=== PATIENT | male | born 1985 | race Caucasian/White ===

== ENCOUNTER 2021-08-12 10:58 | Emergency (ER) | payer OTHER, SELFPAY ==
--- NOTE | 2021-08-12 11:28 | HMH.EDUTC ---
[facility] [place] Disposition Clinical Impression: Left ankle sprain Qualifiers: Encounter type: initial encounter Involved ligament of ankle: unspecified ligament Qualified Code(s): S93.402A - Sprain of unspecified ligament of left ankle, initial encounter Sprain of left foot Qualifiers: Encounter type: initial encounter Qualified Code(s): S93.602A - Unspecified sprain of left foot, initial encounter Disposition: Home, Self-Care Condition on Discharge: Good Instructions: How to Use Crutches, DI for Ankle Sprain, DI for Foot Sprain Additional Instructions: Rest the extremity, apply ice for 15 minutes as tolerated three or four times per day, Elevate the extremity as tolerated while you are resting. Take ibuprofen for pain. I sent in a prescription to your pharmacy. Follow up with Dr. Apple (podiatry). Sometimes there can be fractures that don't show up well on the first set of x-rays. So, you should follow up if you continue to have symptoms. I put in a referral but you need to call his office and schedule an appointment. Follow up with your regular doctor. GO TO THE ER FOR ANY WORSENING SYMPTOMS Prescriptions: Ibuprofen [Ibuprofen 800mg Tablet] 800 mg PO Q8HP PRN #30 tab PRN Reason: Moderate Pain Transmission Status: Received by [id number] Referrals: Provider,Referral, [Primary Care Provider] - Kristen Apple DPM [Staff Physician] - Forms: Work/School Release Time of Disposition: 12:37 Medical Decision Making - Medical Records Medical records reviewed: No: I reviewed the patient's medical records. - Brent Inquiry Pt receiving controlled substance: No Vital Signs: 08/12/21 11:34 08/12/21 13:06 Temperature 98.1 F 98.1 F Temperature Source Oral Pulse Rate 85 Pulse Rate [Left] 85 Respiratory Rate 20 20 Blood Pressure 138/89 Blood Pressure [Right Arm] 138/89 Blood Pressure Mean [Right Arm] 105 02 Sat by Pulse Oximetry 100 - Radiology Data #1 Image(s): Foot/Toes Image Reviewed: Yes I reviewed the patient's radiology image, Yes I have reviewed radiologist's interpretation Preliminary Findings: Normal/NAD, No Fracture Seen PROCEDURE: XR FOOT LT MIN 3V CLINICAL INDICATION: fall Injury with pain COMPARISON: No exams were available for comparison FINDINGS: No fracture or dislocation. No lytic or blastic change. There is normal mineralization. The joint spaces are well-preserved. No significant degenerative/arthritic changes. No erosive changes evident. Other findings:None. IMPRESSION: No acute findings. Dictated by: Dewey Veras MD 08/12/2021 12:24 Dewey Veras MD in [place] 08/12/2021 12:24 #2 Image(s): Ankle Image Reviewed: Yes I reviewed the patient's radiology image, Yes I have reviewed radiologist's interpretation Preliminary Findings: Abnormal, No Fracture Seen PROCEDURE: XR ANKLE LT MIN 3V CLINICAL INDICATION: fall Injury with pain COMPARISON: No exams were available for comparison FINDINGS: No fracture or dislocation. No lytic or blastic change. There is normal mineralization. The joint spaces are well-preserved. No significant degenerative/arthritic changes. No erosive changes evident. Other findings:Soft tissue swelling laterally. IMPRESSION: Soft tissue swelling otherwise negative Dictated by: Dewey Veras MD 08/12/2021 12:23 Dewey Veras MD in [place] 08/12/2021 12:23 #3 Image(s): Tib/Fib Image Reviewed: Yes I reviewed the patient's radiology image, Yes I have reviewed radiologist's interpretation Preliminary Findings: Normal/NAD, No Fracture Seen PROCEDURE: XR TIBIA FIBULA LT 2V CLINICAL INDICATION: fall COMPARISON: No exams were available for comparison FINDINGS: No fracture or dislocation. No lytic or blastic change. There is normal mineralization. The joint spaces are well-preserved. No significant degenerative/arthritic changes. No erosive changes evident. Other findings:None. I
--- NOTE | 2021-08-12 11:33 | XR_ITS ---
PROCEDURE: XR ANKLE LT MIN 3V CLINICAL INDICATION: fall Injury with pain COMPARISON: No exams were available for comparison FINDINGS: No fracture or dislocation. No lytic or blastic change. There is normal mineralization. The joint spaces are well-preserved. No significant degenerative/arthritic changes. No erosive changes evident. Other findings:Soft tissue swelling laterally. IMPRESSION: Soft tissue swelling otherwise negative Dictated by: Dewey Veras MD 08/12/2021 12:23 Dewey Veras MD in [place] 08/12/2021 12:23
--- NOTE | 2021-08-12 11:33 | XR_ITS ---
PROCEDURE: XR TIBIA FIBULA LT 2V CLINICAL INDICATION: fall COMPARISON: No exams were available for comparison FINDINGS: No fracture or dislocation. No lytic or blastic change. There is normal mineralization. The joint spaces are well-preserved. No significant degenerative/arthritic changes. No erosive changes evident. Other findings:None. IMPRESSION: No acute findings. Dictated by: Dewey Veras MD 08/12/2021 12:24 Dewey Veras MD in [place] 08/12/2021 12:24
--- NOTE | 2021-08-12 11:33 | XR_ITS ---
PROCEDURE: XR FOOT LT MIN 3V CLINICAL INDICATION: fall Injury with pain COMPARISON: No exams were available for comparison FINDINGS: No fracture or dislocation. No lytic or blastic change. There is normal mineralization. The joint spaces are well-preserved. No significant degenerative/arthritic changes. No erosive changes evident. Other findings:None. IMPRESSION: No acute findings. Dictated by: Dewey Veras MD 08/12/2021 12:24 Dewey Veras MD in [place] 08/12/2021 12:24
[2021-08-12 11:34] VITALS: BP 138/89; PULSE 85; RESP 20; TEMP 36.7; O2SAT 100; BMI 31.1
[2021-08-12 13:06] VITALS: BP 138/89; PULSE 85; RESP 20; TEMP 36.7
== END 2021-08-12 13:08 | disposition home or self-care (01) ==
PROVIDERS: Emergency Provider Nurse Practitioner Family
DX: S93.402A Sprain of unspecified ligament of left ankle, initial encounter (principal); S93.602A Unspecified sprain of left foot, initial encounter; W17.2XXA Fall into hole, initial encounter; Y92.9 Unspecified place or not applicable; I10 Essential (primary) hypertension; F17.210 Nicotine dependence, cigarettes, uncomplicated
CPT/HCPCS: 29515; 73590; 73610; 73630; 99203; G0463

== ENCOUNTER → 2021-08-28 12:54 | Outpatient (CLI) | payer OTHER, SELFPAY ==
--- NOTE | 2021-08-28 12:54 | MR_ITS ---
PROCEDURE INFORMATION: Exam: MR Left Lower Extremity Joint Without and With Contrast; Ankle Exam date and time: 08/28/2021 12:54 PM Age: 35 years old Clinical indication: Patient HX: Left foot and ankle pain, numbness in foot. Sprain 2-3 weeks ago. 20ml prohance; Additional info: Left ankle injury/pain TECHNIQUE: Imaging protocol: MR of the Left lower extremity without and with contrast. Exam focused on the ankle. Contrast material: PROHANCE; Contrast volume: 20 ml; Contrast route: IV; COMPARISON: CR XR ANKLE LT MIN 3V 08/12/2021 11:58 AMCR XR TIBIA FIBULA LT 2V 08/12/2021 11:57 AM FINDINGS: Bones and cartilage: There are small dorsal and plantar calcaneal enthesophytes. Edema involving the posterior aspect of the medial talar dome suggests an osteochondral injury measuring 0.8 x 0.8 cm. There is presumed associated cartilage damage although not delineated on this study. There is no unstable bone fragment. Joint spaces: A moderate effusion involves the ankle joint. LIGAMENTS: Distal tibiofibular syndesmosis: Unremarkable. No tear. Anterior talofibular ligament: The anterior talofibular ligament is not visible, consistent with a full thickness tear. Posterior talofibular ligament: The posterior talofibular ligament is thickened and has intermediate signal intensity, consistent with prior low grade injury. Calcaneofibular ligament: The calcaneofibular ligament demonstrates intermediate signal intensity, consistent with prior low grade injury. Deltoid ligament complex: Increased T2 signal within the deep deltoid ligament complex is consistent with sprain or low-grade partial-thickness tearing. The superficial component of the deltoid ligament is intact. TENDONS: Flexor tendons of foot: Unremarkable as visualized. Tibialis posterior tendon: Mild tenosynovitis involves the tibialis posterior tendon. Peroneal tendons: Unremarkable as visualized. Extensor tendons of foot: Unremarkable as visualized. Tibialis anterior tendon: Unremarkable. Achilles tendon: There is no tear or significant tendinosis involving the Achilles tendon. Tarsal canal (Sinus tarsi): The sinus tarsi has normal fat signal. Tarsal tunnel: Unremarkable. Muscles: Unremarkable. Soft tissues: Severe soft tissue edema involves the anterolateral ankle. Plantar fascia: Unremarkable. IMPRESSION: 1. Full-thickness tear of the anterior talofibular ligament. 2. Low-grade injuries of the posterior talofibular ligament and calcaneofibular ligament. 3. Sprain of the deep deltoid ligament complex. 4. Bone marrow edema involving the posterior aspect of the medial talar dome suggesting contusions/osteochondral injury. No unstable bone fragment. 5. Mild tenosynovitis of the tibialis posterior tendon. 6. Moderate ankle joint effusion.
== END ==
PROVIDERS: PCP Podiatrist; Visit Provider Podiatrist
DX: S93.402A Sprain of unspecified ligament of left ankle, initial encounter (principal); M25.372 Other instability, left ankle; S86.312A Strain of muscle(s) and tendon(s) of peroneal muscle group at lower leg level, left leg, initial encounter; S93.492A Sprain of other ligament of left ankle, initial encounter; S99.912A Unspecified injury of left ankle, initial encounter
CPT/HCPCS: 73723; A9576

== ENCOUNTER 2024-06-30 15:36 | Emergency (ER) | payer SELFPAY ==
[2024-06-30 15:38] VITALS: BP 141/110; PULSE 121; RESP 16; TEMP 36.8; O2SAT 97; BMI 27.1
--- NOTE | 2024-06-30 15:44 | ED_ITS ---
Discharge Plan Disposition Patient Disposition: Home, Self-Care Condition: Good Prescriptions Prescriptions: No Action bisoprolol fumarate 5 mg tablet 5 mg PO DAILY amlodipine 2.5 mg tablet 2.5 mg PO DAILY ibuprofen 800 MG tablet 800 mg PO Q8HP PRN (Reason: Moderate Pain) Qty: 30 0RF Referrals Follow up/Referrals: Provider,Referral, [Primary Care Provider] - See instructions Activity Restrictions/Add. Instructions Additional Instructions/Restrictions: As we discussed, your labs show that you likely have a kidney injury that is possibly due to dehydration based on the symptoms he discussed with me. I do not see any significant electrolyte abnormalities at this time and, given that you are able to keep liquids down, your cramping is resolved, and we have given you 2 L, after shared decision making I believe it is reasonable for you to be discharged from the emergency department at this time. I would like you to get your kidney function lab rechecked in 24 to 48 hours to make sure that things are improving. Please drink plenty of liquids. Please return with any new or worsening symptoms. Clinical Impressions Clinical Impression: Acute kidney injury Print Language Print Language: Lithuanian Discharge ED Provider: Tavares Beck General Adult HPI General Chief complaint: Recheck/Abnormal Lab/Rx Stated complaint: Cramps,pee dark,vomiting Time Seen by Provider: 06/30/24 15:44 History of Present Illness HPI narrative: The patient presents with a chief complaint of dehydration. He reports experiencing cramping in his legs and feeling overheated. This is the first time he has experienced this specific issue, but he has a history of kidney failure that required hospitalization. The patient has been feeling dehydrated for approximately two hours. The patient mentions excessive sweating as a possible cause for his dehydration. He has been experiencing excessive sweating for the past eight years, which often leads to severe cramping. The patient also reports difficulty feeling his hands and experiencing cramping in his lower extremities. The patient has a history of taking blood pressure medication, which he believes contributed to his kidney failure. He has not taken any blood pressure medication since his hospitalization for kidney failure. The patient also mentions that his urine output was reduced yesterday, which raised concerns about his kidney function. The patient reports that he started cramping after drinking water at 2 o'clock. He describes his cramping as severe, stating when I say I cramp, I cramp so darn bad. The patient mentions he hasn't cramped for a long time until now. He expresses concern about his current condition, stating that during his previous episode, he was told he might not have survived if he had waited another hour to seek treatment. Please note that above description of symptoms, in this electronic medical record under categorization of recalled from ER triage doctor by RN are reflective of an initial nursing assessment, however, is not reflective of my full history and physical exam that was personally taken and clarified. Consequentially, this preceding description of symptoms, which may include the patient's categorized chief complaint in the EMR, do not reflect my personal clinical impression, and the ultimate description of history of present illness and patient stated complaints should be deferred to this section of the note. Unless stated otherwise or congruent with this section of the note, additional signs, symptoms, or incongruence should be interpreted as inaccurate with my clinical impression. Related Data Home Medications ?Medication ?Instructions ?Recorded ?Confirmed amlodipine 2.5 mg tablet 2.5 mg PO DAILY 07/02/18 10/13/21 bisoprolol fumarate 5 mg tablet 5 mg PO DAILY 07/02/18 10/13/21 Previous Rx's ?Medication ?Instructions ?Recorded ibuprofen 800 mg tablet 800 mg PO Q8HP PRN Moderate Pain 08/12/21 #30 tabs Allergies Allergy/AdvReac Type Severity Reaction Status Date / Time lisinopril [LISINOPRIL] Allergy Unknown Verified 10/13/21 10:50 [facility] Disclaimer: The information contained in this section may have been updated after the patient was seen, as this information can be updated by other users. Social History Smoking Status: Current every day smoker tobacco type: cigarettes packs per day: 1 alcohol intake: current alcohol intake frequency: holidays/special occasions only substance use type: marijuana current occupational status: unemployed Travel in the last 8 weeks: None ROS Obtained: Yes other As per HPI Physical Exam General General appearance: alert and in no apparent distress Head Head exam: atraumatic and normocephalic Eye Eye exam: Present normal appearance Neck Neck exam: Present normal inspection Chest Chest inspection: Present normal inspection and symmetric chest wall rise Respiratory Respiratory exam: Present normal lung sounds bilaterally; Absent respiratory distress Cardiovascular Cardiovascular exam: Present regular rate and normal rhythm Abdominal Exam Abdominal exam: Present soft Neurological Exam Neurological exam: Present alert and oriented X3 Psychiatric Psychiatric exam: Present normal affect and normal mood Skin Skin exam: Present warm and dry Medical Decision Making Medical Records Medical records reviewed: Yes I reviewed the patient's medical records. Brent Inquiry Pt receiving controlled substance: No Vital Signs: 06/30/24 15:38 06/30/24 18:19 06/30/24 19:28 Temperature 98.2 F 97.9 F 98.2 F Temperature Source Oral Oral Pulse Rate 80 81 Pulse Rate [Left Radial] 121 H Respiratory Rate 16 13 16 Blood Pressure 138/90 140/91 H Blood Pressure [Right Arm] 141/110 H Blood Pressure Mean [Right Arm] 120 Blood Pressure Source Automatic Cuff Blood Pressure Position Sitting 02 Sat by Pulse Oximetry 97 97 Oxygen Delivery Method Room Air Room Air Room Air Lab Data Lab Results 06/30/24 15:51: WBC 15.4 H, RBC 5.68, Hgb 18.0, Hct 55.6 H, MCV 97.9 H, MCH 31.7 H, MCHC 32.4, RDW 13.3, Plt Count 261, MPV 7.6, Neut % (Auto) 83.0 H, Lymph % (Auto) 10.8, [place] % (Auto) 4.9, Eos % (Auto) 0.9, Baso % (Auto) 0.5, Neut # (Auto) 12.8 H, Lymph # (Auto) 1.7, [place] # (Auto) 0.8, Eos # (Auto) 0.1, Baso # (Auto) 0.1, Total Counted 100, Neutrophils % (Manual) 78 H, Lymphocytes % (Manual) 16, Monocytes % (Manual) 4, Basophils % (Manual) 1.0, Metamyelocytes % 1.0, Platelet Estimate Normal, RBC Morphology Normal, Sodium 141, Potassium 4.2, Chloride 105, Carbon Dioxide 24, Anion Gap 16.2 H, BUN 22 H, Creatinine 1.70 H, Estimated GFR 45 L, Est GFR ( Amer) 55 L, Glucose 96, Calcium 11.0 H, Magnesium 1.7, Total Bilirubin 1.4 H, AST 44, ALT 45, Alkaline Phosphatase 53, T otal Protein 9.8 H, Albumin 5.5 H, Globulin 4.3 H, Albumin/Globulin Ratio 1.3, Urine Color Dark yellow, Urine Appearance Sl cloudy, Urine pH 5.0, Ur Specific [place] >= 1.030, Urine Protein 2+ A, Urine Glucose (UA) Negative, Urine Ketones 1+, Urine Blood Negative, Urine Nitrate Positive, Urine Bilirubin 2+ A, Urine Urobilinogen 1.0, Ur Leukocyte Esterase Negative, Urine RBC None, Urine WBC 3-5, Ur Squamous Epith Cells Occasional, Urine Bacteria 3+, Hyaline Casts 10-20 06/30/24 15:51 06/30/24 15:51 Orders (Tests/Meds): ED MEDICATIONS Discontinued Medications Generic Name Dose Route Start Last Admin Trade Name Freq PRN Reason Stop Dose Admin Lactated Ringer's 1,000 mls @ 999 mls/hr 06/30/24 15:53 06/30/24 16:20 Lactated Ringer's 1000 Ml Bag IV 06/30/24 16:53 999 mls/hr .Q1H1M ONE Administration Magnesium Sulfate 2 gm in 50 mls @ 50 mls/hr 06/30/24 16:14 06/30/24 16:19 Magnesium Sulfate 2gm/50ml Premix IV 06/30/24 17:13 50 mls/hr ONCE ONE Administration Lactated Ringer's 1,000 mls @ 999 mls/hr 06/30/24 17:53 06/30/24 18:04 Lactated Ringer's 1000 Ml Bag IV 06/30/24 18:53 999 mls/hr .Q1H1M ONE Administration ORDERS Category Date Time Status CBC w/Auto Diff [Complete Blood Count Auto Diff] Stat Lab 06/30/24 15:51 Completed CMP [Comprehensive Metabolic Panel] Stat Lab 06/30/24 15:51 Completed Magnesium Stat Lab 06/30/24 15:51 Completed Urinalysis and Microscopic Stat Lab 06/30/24 15:51 Completed Urine Culture Stat Micro 06/30/24 15:51 Received Medical Decision Narrative: Patient with history and exam per above presenting for evaluation of concern for dehydration, cramping, dark urine Diagnoses considered include acute kidney injury, electrolyte abnormality, rhabdomyolysis ED workup and treatment included: ED MEDICATIONS Discontinued Medications Generic Name Dose Route Start Last Admin Trade Name Freq PRN Reason Stop Dose Admin Lactated Ringer's 1,000 mls @ 999 mls/hr 06/30/24 15:53 06/30/24 16:20 Lactated Ringer's 1000 Ml Bag IV 06/30/24 16:53 999 mls/hr .Q1H1M ONE Administration Magnesium Sulfate 2 gm in 50 mls @ 50 mls/hr 06/30/24 16:14 06/30/24 16:19 Magnesium Sulfate 2gm/50ml Premix IV 06/30/24 17:13 50 mls/hr ONCE ONE Administration Lactated Ringer's 1,000 mls @ 999 mls/hr 06/30/24 17:53 06/30/24 18:04 Lactated Ringer's 1000 Ml Bag IV 06/30/24 18:53 999 mls/hr .Q1H1M ONE Administration ORDERS Category Date Time Status CBC w/Auto Diff [Complete Blood Count Auto Diff] Stat Lab 06/30/24 15:51 Completed CMP [Comprehensive Metabolic Panel] Stat Lab 06/30/24 15:51 Completed Magnesium Stat Lab 06/30/24 15:51 Completed Urinalysis and Microscopic Stat Lab 06/30/24 15:51 Completed Urine Culture Stat Micro 06/30/24 15:51 Received Labs were independently interpreted by me, significant for hemoconcentration, creatinine 1.7, no significant electrolyte abnormality, no gross or microscopic hematuria Patient reports improvement of symptoms upon repeat evaluation. He received 2 L of IV fluids and was able to tolerate p.o. intake without complication. Baseline creatinine is unknown, however, after shared decision making, he will be discharged with outpatient follow-up for recheck creatinine and will continue to drink liquids throughout the day, monitor urine output, and return with any new or worsening symptoms. Critical Care Critical Care Time Critical Care Time: No
[2024-06-30 16:00] LABS: Microscopic, Urine URINE MICROSCOPIC (MICROSCOPIC)
[2024-06-30 16:01] LABS: Appearance,Urine SL CLOUDY (Clear); Blood, Urine Negative (Negative); Color,Urine DARK YELLOW (Yellow); Glucose,Urine (UA) Negative (Negative); Ketones,Urine 1+ (Negative); Leukocyte Esterase,Urine Negative (Negative); Nitrate,Urine POSITIVE (Negative); Protein,Urine 2+ (Negative); Specific Gravity, Urine >= 1.030 (1.005-1.030)
[2024-06-30 16:02] LABS: Basophils # 0.1 K/mm3 (0-0.2); Basophils % 0.5 % (0.1-2.0); Eosinophils # 0.1 K/mm3 (0.0-0.4); Eosinophils % 0.9 % (0.1-12.0); Hematocrit 55.6 % (42.0-52.0); Lymphocytes # 1.7 K/mm3 (0.7-4.5); Lymphocytes % 10.8 % (10-50); Mean Corpuscular HGB Conc 32.4 g/dL (31.8-35.4); Mean Corpuscular Hemoglobin 31.7 pg (27.0-31.2); Mean Corpuscular Volume 97.9 fl (80-94); Mean Platelet Volume 7.6 fl (7.4-10.4); Monocytes # 0.8 K/mm3 (0.1-1.0); Monocytes % 4.9 % (1.7-9.3); Neutrophils # 12.8 K/mm3 (1.8-7.8); Platelet Count 261 K/mm3 (142-424); Red Blood Count 5.68 M/mm3 (4.60-6.20); Red Cell Distribution Width 13.3 % (11.5-17.5); White Blood Count 15.4 K/mm3 (4.8-10.8)
[2024-06-30 16:04] LABS: Bilirubin,Urine 2+ (Negative)
[2024-06-30 16:06] LABS: MANUAL DIFFERENTIAL MANUAL DIFFERENTIAL (MANUAL DIFF)
[2024-06-30 16:08] LABS: Albumin Level 5.5 g/dl (3.5-5.0); Chloride 105 mmol/L (98-107); Potassium 4.2 mmoL/L (3.5-5.1); Sodium 141 mmol/L (136-145)
[2024-06-30 16:09] LABS: Bacteria,Urine 3+ /lpf; Squamous Epithelial Cell,Urine Occasional #/hpf (0-5)
[2024-06-30 16:11] LABS: Alanine Aminotransferase 45 U/L (12-78); Albumin/Globulin Ratio 1.3 (1.1-1.8); Alkaline Phosphatase 53 U/L (38-126); Anion Gap 16.2 mEq/L (5-15); Aspartate Amino Transferase 44 U/L (17-59); Bilirubin,Total 1.4 mg/dl (0.2-1.3); Blood Urea Nitrogen 22 mg/dl (9-20); Carbon Dioxide 24 mmol/L (22.0-30.0); Estimated Glomerular Filt Rate 45 ml/min (>60); GFR (African American) 55 ML/MIN (>60); Globulin 4.3 g/dL (1.3-3.2); Glucose 96 mg/dl (74-100); Total Protein,Serum 9.8 g/dl (6.3-8.2)
[2024-06-30 16:18] LABS: Lymphocytes % 16 % (10-50); Monocytes % 4 % (2-9); Neutrophils % 78 % (42-76); Total Cells Counted 100
[2024-06-30 16:19] LABS: Platelet Estimate Normal; RBC Morphology Normal
[2024-06-30] MEDS: MAGNESIUM SULFATE IN WATER 2 GM/50 ML PIGGYBACK IV (16:19)
[2024-06-30] MEDS: LACTATED RINGERS 1000ML 1,000 ML 999 ML IV ×2 (16:20→18:04)
[2024-06-30 16:26] LABS: Magnesium 1.7 mg/dl (1.6-2.3)
--- NOTE | 2024-06-30 18:00 | PC.NURSE ---
Dr. Beck s/w pt. He s/w pt about admission vs rechecking labs in 24 hrs. Pt is anxious to leave. Says that he feels better and ready to go. Dr. Beck and pt discussed at length regarding labs and fluid intake. He states he will stay for a 2nd fluid bolus and return to have his labs checked. He is tolerating PO intake well. Denies any continued cramping.
[2024-06-30 18:19] VITALS: BP 138/90; PULSE 80; RESP 13; TEMP 36.6; O2SAT 97
--- NOTE | 2024-06-30 18:30 | PC.NURSE ---
Rounded on pt, no acute needs at this time. allowed back at bedside
[2024-06-30 19:28] VITALS: BP 140/91; PULSE 81; RESP 16; TEMP 36.8; O2SAT 99
--- NOTE | 2024-07-03 09:16 | PC.NURSE ---
discussed urine culture with , ntd
== END 2024-06-30 19:29 | disposition home or self-care (01) ==
PROVIDERS: Emergency Provider Emergency Medicine
DX: N17.9 Acute kidney failure, unspecified (principal); R25.2 Cramp and spasm; E86.0 Dehydration; F17.210 Nicotine dependence, cigarettes, uncomplicated
CPT/HCPCS: 80053; 81001; 83735; 85007; 85025; 85027; 87086; 87088; 87186; 96361; 96365; 99285; J3475; J7120